=== PATIENT | male | born 1970 | race Caucasian/White ===

== ENCOUNTER 2020-12-21 15:39 | Emergency (ER) | payer OTHER ==
[2020-12-21 16:22] LABS: BASOPHIL 0.7 % (0-2); EOSINOPHIL 2.8 % (0-5); HGB 13.4 g/dl (13.2-18.0); LYMPHOCYTE 22.6 % (15-48); MCHC 34.4 g/dL (32.0-36.0); MCV 93.1 fL (78.0-100.0); MONOCYTE 5.9 % (0-12); MPV 9.4 fL (6.0-9.5); NEUTROPHIL 67.7 % (41-80); NRBC 0; PLT 195 K/uL (150-400); RBC 4.19 M/uL (4.70-6.00); RDW 13.5 % (11.5-14.0)
[2020-12-21 17:18] LABS: ALBUMIN 3.7 g/dL (3.4-5.0); BILIRUBIN - TOTAL 0.8 mg/dL (0.2-1.0); BUN/CREAT RATIO (CALC) 7.3 RATIO; CREATININE 1.24 mg/dL (0.67-1.17); POTASSIUM 3.5 mmol/L (3.5-5.1); TOTAL PROTEIN 6.9 g/dL (6.4-8.2)
[2020-12-21 17:19] LABS: GLOBULIN (CALCULATION) 3.2 g/dL
[2020-12-21] MEDS ORDERED: ATIVAN1 MG PO (19:19)
== END 2020-12-21 20:02 | disposition home or self-care (01) ==
LOC: FER 15:39
PROVIDERS: Nurse Practitioner Family
DX: G40.109 Localization-related (focal) (partial) symptomatic epilepsy and epileptic syndromes with simple partial seizures, not intractable, without status epilepticus (principal); I48.91 Unspecified atrial fibrillation; E11.9 Type 2 diabetes mellitus without complications; Z88.8 Allergy status to other drugs, medicaments and biological substances; Z88.3 Allergy status to other anti-infective agents; Z79.84 Long term (current) use of oral hypoglycemic drugs
CPT/HCPCS: 36415; 70450; 80053; 85025; J2060